=== PATIENT | female | born 2000 | race Hispanic/Latino ===

== ENCOUNTER 2021-11-16 04:11 | Emergency (ER) | payer SELFPAY ==
[~2021-11-16] VITALS: Ht 160 cm; Wt 81.6 kg
[2021-11-16] MEDS ORDERED: METRONIDAZOLE 500 MG TAB PO ONE (04:30)
[2021-11-16] MEDS ORDERED: CEFTRIAXONE 500 MG VIAL IM ONE (04:30)
[2021-11-16] MEDS ORDERED: CEFTRIAXONE 1 GM VIAL ONE (04:38)
[2021-11-16] MEDS ORDERED: METRONIDAZOLE 500 MG TAB ONE ×2 (04:38→04:39)
== END 2021-11-16 05:02 | disposition home or self-care (01) ==
LOC: ER 04:18
DX: K58.1 Irritable bowel syndrome with constipation (principal); Z20.2 Contact with and (suspected) exposure to infections with a predominantly sexual mode of transmission
CPT/HCPCS: 99283; J0696

== ENCOUNTER 2022-02-12 04:06 | Inpatient (IN) | payer SELFPAY ==
[~2022-02-12] VITALS: Ht 160 cm; Wt 81.6 kg
[2022-02-12] MEDS ORDERED: LACTATED RINGER'S 1,000 ML INJ ONE (04:15)
[2022-02-12 04:34] LABS: BASOPHILS # (AUTO) 0.1 (0.0-0.1); BASOPHILS % 0.7 % (0.0-1.0); EOSINOPHILS # (AUTO) 0.1 (0.0-0.4); EOSINOPHILS % 0.8 % (0.0-6.0); HEMATOCRIT 34.9 % (34.2-44.1); HEMOGLOBIN 10.7 g/dL (12.0-16.0); LYMPHOCYTES # (AUTO) 3.5 (1.0-3.2); LYMPHOCYTES % 38.9 % (18.0-39.1); MEAN CORPUSCULAR HEMOGLOBIN 27.7 pg (28-32); MEAN CORPUSCULAR HGB CONC 30.7 g/dL (31-35); MEAN CORPUSCULAR VOLUME 90.4 fL (81-99); MONOCYTES # (AUTO) 0.5 (0.2-0.8); MONOCYTES % 5.5 % (4.4-11.3); NEUTROPHILS # (AUTO) 4.9 (2.1-6.9); NEUTROPHILS % 53.9 % (38.7-80.0); PLATELET COUNT 434 x10e3/uL (140-360); RED BLOOD COUNT 3.86 x10e6/uL (3.6-5.1); RED CELL DISTRIBUTION WIDTH 13.5 % (11.7-14.4)
[2022-02-12] MEDS ORDERED: LIDOCAINE VISC 2% SOLN 15 ML UDC ONE (04:36)
[2022-02-12] MEDS ORDERED: BELLADONNA ALK/PHENOBARBITAL 5 ML UDC ONE (04:36)
[2022-02-12] MEDS ORDERED: MAGNESIUM/ALUMINUM/SIMETHICONE 30 ML UDC ONE (04:36)
[2022-02-12 04:38] LABS: AMPHETAMINES SCREEN,URINE NEGATIVE (NEGATIVE); BENZODIAZEPINES SCREEN,URINE NEGATIVE (NEGATIVE); CLARITY,URINE CLOUDY (CLEAR); COLOR,URINE STRAW (YELLOW); KETONES,URINE NEGATIVE (NEGATIVE); LEUKOCYTE ESTERASE ,URINE NEGATIVE (NEGATIVE); NITRITE,URINE NEGATIVE (NEGATIVE); PHENCYCLIDINE SCREEN,URINE NEGATIVE (NEGATIVE); PROTEIN,URINE DIPSTICK NEGATIVE (NEGATIVE); URINE UROBILINOGEN 0.2 mg/dL (0.2 - 1)
[2022-02-12 04:47] LABS: LIPASE 1124 U/L (8-78)
[2022-02-12 04:49] LABS: ALBUMIN 3.5 g/dL (3.5-5.0); ALBUMIN/GLOBULIN RATIO 0.9 (0.8-2.0); ANION GAP 14.9 mmol/L (8-16); CALCIUM 8.9 mg/dL (8.4-10.2); CREATININE, SERUM 0.93 mg/dL (0.57-1.11); POTASSIUM 3.9 mmol/L (3.5-5.1)
[2022-02-12 04:52] LABS: BACTERIA,URINE FEW /HPF; EPITHELIAL CELLS,URINE FEW /LPF; RBC,URINE >50 /HPF (0-5)
[2022-02-12] MEDS ORDERED: SODIUM CHLORIDE 0.9% 1000ML 1,000 ML IV STA (05:13)
[2022-02-12] MEDS ORDERED: ONDANSETRON HCL INJ 2MG/ML 2ML 2 MG/ML VIAL IV STA (05:19)
[2022-02-12] MEDS ORDERED: Morphine 4mg INJECTION 4 MG/ML INJ IV STA (05:19)
[2022-02-12] MEDS ORDERED: ONDANSETRON HCL INJ 2MG/ML 2ML 2 MG/ML VIAL ONE (05:35)
[2022-02-12] MEDS ORDERED: Morphine 2mg Syringe 2 MG/ML SYR ONE (05:35)
[2022-02-12 05:38] LABS: CHOL/HDL RATIO 3.7 (3.0-3.6); CHOLESTEROL 139 MD/DL (0-199); HDL CHOLESTEROL 38 MG/DL (40-60); LDL CHOLESTEROL 82 MG/DL (60-130); TRIGLYCERIDES 96 MG/DL (0-149)
[2022-02-12] MEDS ORDERED: IOPAMIDOL 370 MG/ML 100 ML INFUS..BTL INJ ONE (06:23)
[2022-02-12] MEDS ORDERED: ONDANSETRON HCL INJ 2MG/ML 2ML 2 MG/ML VIAL IV PRN (07:45)
[2022-02-12] MEDS ORDERED: Morphine 2mg Syringe 2 MG/ML SYR IV PRN (07:45)
[2022-02-12] MEDS ORDERED: DONNATAL/LIDOCAINE/MAALOX 30 ML SUSP PO SCH (09:00)
[2022-02-12] MEDS: SODIUM CHLORIDE 0.9% 1000ML 1,000 ML IV SCH ×3 (09:49→22:59)
[2022-02-12] MEDS ORDERED: FAMOTIDINE 20 MG/2 ML VIAL IV STA (14:11)
[2022-02-12] MEDS ORDERED: DIPHENHYDRAMINE HCL INJ 50 MG/ML VIAL IV ONE (14:15)
[2022-02-12 18:25] VITALS: BP 109/80
[2022-02-12] MEDS ORDERED: DIPHENHYDRAMINE HCL INJ 50 MG/ML VIAL IV PRN (19:45)
[2022-02-12 20:00] VITALS: BP 105/72
[2022-02-12] MEDS ORDERED: METHYLPREDNISOLONE SOD SUCC 40 MG/ML VIAL 1ML IV ONE (20:30)
[2022-02-12 22:28] VITALS: BP 105/72
[2022-02-12 22:45] VITALS: BP 105/72
[2022-02-12] MEDS: HYDROXYZINE HCL 25 MG TAB PO PRN (23:30)
[2022-02-12] MEDS: DIPHENHYDRAMINE HCL INJ 50 MG/ML VIAL IV PRN (23:32)
[2022-02-12] MEDS ORDERED: HYDROXYZINE HCL 25 MG TAB ONE (23:40)
[2022-02-13] VITALS (8 sets, daily range): BP systolic 107–115; BP diastolic 61–74
[2022-02-13 06:06] LABS: BASOPHILS % 0.3 % (0.0-1.0); HEMATOCRIT 35.9 % (34.2-44.1); HEMOGLOBIN 11.2 g/dL (12.0-16.0); LYMPHOCYTES # (AUTO) 1.2 (1.0-3.2); LYMPHOCYTES % 12.4 % (18.0-39.1); MEAN CORPUSCULAR HEMOGLOBIN 27.5 pg (28-32); MEAN CORPUSCULAR HGB CONC 31.2 g/dL (31-35); MEAN CORPUSCULAR VOLUME 88.2 fL (81-99); MONOCYTES # (AUTO) 0.1 (0.2-0.8); MONOCYTES % 0.8 % (4.4-11.3); NEUTROPHILS % 86.1 % (38.7-80.0); PLATELET COUNT 400 x10e3/uL (140-360); RED BLOOD COUNT 4.07 x10e6/uL (3.6-5.1); RED CELL DISTRIBUTION WIDTH 13.4 % (11.7-14.4)
[2022-02-13 06:36] LABS: ALBUMIN 3.5 g/dL (3.5-5.0); ALBUMIN/GLOBULIN RATIO 0.9 (0.8-2.0); ANION GAP 14.3 mmol/L (8-16); CALCIUM 8.9 mg/dL (8.4-10.2); CREATININE, SERUM 0.68 mg/dL (0.57-1.11); POTASSIUM 4.3 mmol/L (3.5-5.1)
[2022-02-13] MEDS: SODIUM CHLORIDE 0.9% 1000ML 1,000 ML IV SCH ×3 (08:34→20:56)
[2022-02-13] MEDS: HYDROCODONE/APAP 10MG-325MG TAB PO PRN ×2 (13:30→21:17)
[2022-02-13] MEDS: HYDROXYZINE HCL 25 MG TAB PO PRN ×2 (16:35→20:54)
[2022-02-13] MEDS: DIPHENHYDRAMINE HCL INJ 50 MG/ML VIAL IV PRN (23:52)
[2022-02-14] VITALS (8 sets, daily range): BP systolic 94–116; BP diastolic 51–66
[2022-02-14] MEDS: DIPHENHYDRAMINE HCL INJ 50 MG/ML VIAL IV PRN ×2 (03:45→09:25)
[2022-02-14] MEDS: SODIUM CHLORIDE 0.9% 1000ML 1,000 ML IV SCH ×3 (03:56→21:22)
[2022-02-14] MEDS ORDERED: BUPIVACAINE HC 0.75% PF 10ML VIAL INJ ONE (09:56)
[2022-02-14] MEDS ORDERED: ONDANSETRON HCL INJ 2MG/ML 2ML 2 MG/ML VIAL ONE (11:56)
[2022-02-14] MEDS ORDERED: PROPOFOL IV EMULSION 10 MG/ML 20 ML VIAL ONE (11:56)
[2022-02-14] MEDS ORDERED: POVIDONE IODINE 0.05% 0.05 % ML PO ONE (11:56)
[2022-02-14] MEDS ORDERED: SEVOFLURANE INHAL SOLN 250 ML PEN BTL ONE (11:56)
[2022-02-14] MEDS ORDERED: DEXAMETHASONE SOD PHOS INJ 4 MG/ML SDV ONE (11:56)
[2022-02-14] MEDS ORDERED: ROCURONIUM BROMIDE 10 MG/ML 5ML VIAL IV ONE (11:56)
[2022-02-14] MEDS ORDERED: LIDOCAINE HCL 2% LOCAL INJ 5 ML SDV VIAL INJ ONE (11:56)
[2022-02-14] MEDS ORDERED: MIDAZOLAM HCL 2 MG/2 ML VIAL ONE (12:11)
[2022-02-14] MEDS ORDERED: FENTANYL CITRATE/PF 100MCG/2 ML INJ ONE ×2 (12:11→13:45)
[2022-02-14] MEDS ORDERED: Morphine 4mg INJECTION 4 MG/ML INJ IV PRN (13:15)
[2022-02-14] MEDS ORDERED: ONDANSETRON HCL INJ 2MG/ML 2ML 2 MG/ML VIAL IV PRN (13:15)
[2022-02-14] MEDS: HYDROCODONE/APAP 5MG-325MG TAB PO PRN ×2 (14:57→21:22)
[2022-02-15] VITALS (9 sets, daily range): BP systolic 101–117; BP diastolic 60–74
[2022-02-15] MEDS: HYDROCODONE/APAP 5MG-325MG TAB PO PRN (02:15)
[2022-02-15] MEDS: DIPHENHYDRAMINE HCL INJ 50 MG/ML VIAL IV PRN ×2 (04:31→20:59)
[2022-02-15] MEDS: HYDROMORPHONE 1MG/1ML INJ IV PRN ×3 (04:54→20:58)
[2022-02-15 05:54] LABS: BASOPHILS % 0.2 % (0.0-1.0); EOSINOPHILS % 0.1 % (0.0-6.0); HEMATOCRIT 29.1 % (34.2-44.1); HEMOGLOBIN 9.2 g/dL (12.0-16.0); LYMPHOCYTES # (AUTO) 1.9 (1.0-3.2); LYMPHOCYTES % 18.9 % (18.0-39.1); MEAN CORPUSCULAR HGB CONC 31.6 g/dL (31-35); MEAN CORPUSCULAR VOLUME 88.4 fL (81-99); MONOCYTES # (AUTO) 0.5 (0.2-0.8); MONOCYTES % 5.2 % (4.4-11.3); NEUTROPHILS # (AUTO) 7.7 (2.1-6.9); NEUTROPHILS % 75.1 % (38.7-80.0); PLATELET COUNT 334 x10e3/uL (140-360); RED BLOOD COUNT 3.29 x10e6/uL (3.6-5.1); RED CELL DISTRIBUTION WIDTH 13.6 % (11.7-14.4)
[2022-02-15] MEDS: SODIUM CHLORIDE 0.9% 1000ML 1,000 ML IV SCH (06:12)
[2022-02-15 06:22] LABS: ANION GAP 13.3 mmol/L (8-16); CALCIUM 7.9 mg/dL (8.4-10.2); CREATININE, SERUM 0.62 mg/dL (0.57-1.11); POTASSIUM 3.3 mmol/L (3.5-5.1)
[2022-02-15] MEDS: HYDROXYZINE HCL 25 MG TAB PO PRN ×2 (10:05→19:21)
[2022-02-15] MEDS ORDERED: POTASSIUM CHLORIDE 20 MEQ TAB CR PO ONE (14:30)
[2022-02-16] MEDS: HYDROMORPHONE 1MG/1ML INJ IV PRN ×2 (00:39→06:18)
[2022-02-16 05:19] VITALS: BP 112/72
[2022-02-16 06:38] LABS: BASOPHILS % 0.3 % (0.0-1.0); EOSINOPHILS # (AUTO) 0.1 (0.0-0.4); EOSINOPHILS % 1.9 % (0.0-6.0); HEMATOCRIT 30.5 % (34.2-44.1); HEMOGLOBIN 9.5 g/dL (12.0-16.0); LYMPHOCYTES # (AUTO) 2.7 (1.0-3.2); LYMPHOCYTES % 36.8 % (18.0-39.1); MEAN CORPUSCULAR HEMOGLOBIN 27.5 pg (28-32); MEAN CORPUSCULAR HGB CONC 31.1 g/dL (31-35); MEAN CORPUSCULAR VOLUME 88.2 fL (81-99); MONOCYTES # (AUTO) 0.4 (0.2-0.8); MONOCYTES % 5.1 % (4.4-11.3); NEUTROPHILS # (AUTO) 4.1 (2.1-6.9); NEUTROPHILS % 55.8 % (38.7-80.0); PLATELET COUNT 347 x10e3/uL (140-360); RED BLOOD COUNT 3.46 x10e6/uL (3.6-5.1); RED CELL DISTRIBUTION WIDTH 13.7 % (11.7-14.4)
[2022-02-16 07:20] LABS: ANION GAP 14.4 mmol/L (8-16); CALCIUM 8.1 mg/dL (8.4-10.2); CREATININE, SERUM 0.6 mg/dL (0.57-1.11); MAGNESIUM 1.8 MG/DL (1.3-2.1); POTASSIUM 3.4 mmol/L (3.5-5.1)
[2022-02-16 08:23] VITALS: BP 116/76
[2022-02-16 09:00] VITALS: BP 116/76
[2022-02-16] MEDS ORDERED: POTASSIUM CHLORIDE 20 MEQ TAB CR PO NR (10:00)
[2022-02-16] MEDS ORDERED: POLYETHYLENE GLYCOL 3350 17 GM PACK PO PRN (12:15)
[2022-02-16 12:41] VITALS: BP 107/65
[2022-02-16] MEDS ORDERED: FERROUS SULFATE 325 MG TAB PO SCH (15:00)
[2022-02-16] MEDS ORDERED: DOCUSATE SODIUM 100 MG CAP PO SCH (15:00)
[2022-02-16] MEDS ORDERED: ASCORBIC ACID 500 MG TAB PO SCH (17:00)
[2022-02-16 17:01] VITALS: BP 106/69
[2022-02-16] MEDS: HYDROCODONE/APAP 5MG-325MG TAB PO PRN (17:10)
[2022-02-16] MEDS ORDERED: MIRALAX17 GM PO (19:18)
[2022-02-16] MEDS ORDERED: ASCORBIC ACID500 MG PO (19:18)
[2022-02-16] MEDS ORDERED: Docusate Sodium PO (19:18)
[2022-02-16] MEDS ORDERED: HYDROCODON-ACE1 EA11 PO (19:18)
[2022-02-16] MEDS ORDERED: HYDROXYZINE HCL25 MG PO ×2 (19:18→19:27)
[2022-02-16] MEDS ORDERED: Ferrous Sulfate PO (19:18)
[2022-02-16] MEDS ORDERED: ONDANSETRON ODT4 MG PO (19:18)
[2022-02-16 20:00] VITALS: BP 97/53
[2022-02-16] MEDS: HYDROXYZINE HCL 25 MG TAB PO PRN (21:26)
[2022-02-16] MEDS: DIPHENHYDRAMINE HCL INJ 50 MG/ML VIAL IV PRN (21:26)
== END 2022-02-16 22:05 | disposition home or self-care (01) | DRG 417 ==
LOC: ER 04:14 → ERHOLD 05:18 → MED/SURG3 18:19
PROVIDERS: ADMIT Internal Medicine; ATTEND Internal Medicine
PROC: 0FT44ZZ Resection of Gallbladder, Percutaneous Endoscopic Approach (ICD-10-PCS; principal; 2022-02-14 12:21)
DX: K80.00 Calculus of gallbladder with acute cholecystitis without obstruction (principal); K85.10 Biliary acute pancreatitis without necrosis or infection; D62 Acute posthemorrhagic anemia; B97.4 Respiratory syncytial virus as the cause of diseases classified elsewhere; R21 Rash and other nonspecific skin eruption; Z20.822 Contact with and (suspected) exposure to COVID-19
CPT/HCPCS: 36415; 74177; 74181; 76705; 80048; 80053; 80061; 80307; 80320; 81001; 82150; 83540; 83690; 83735; 84466; 84702; 85025; 88304; 94799; 99284; J1100; J1170; J1200; J2001; J2250; J2270; J2405; J2920; J3010; J3410; J7030; J7121; Q9967